=== PATIENT | female | born 1970 | race Caucasian/White ===

== ENCOUNTER 2021-03-20 09:54 | Day surgery (SDC) | payer BC ==
[2021-03-20] MEDS ORDERED: LIDOCAINE HCL 2% 100 MG/5 ML IJ ONE (09:55)
[2021-03-20] MEDS ORDERED: DIPRIVAN 200 MG/20 ML IV ONE (10:53)
[2021-03-20] MEDS ORDERED: Ketamine HCl 50 MG/ML ONE (11:38)
[2021-03-20] MEDS ORDERED: Lactated Ringers 1,000 ML IV ONE (15:54)
--- NOTE | 2021-03-21 11:53 | XRAY ---
19 seconds of fluoroscopy was used in surgery for a bilateral L4-S1 MBB.
--- NOTE | 2021-03-23 23:56 | XRAY ---
Indication: Bilateral L4-S1 MBB. Intraoperative fluoroscopy was provided for 19 seconds. A single digital spot image submitted for interpretation demonstrates posterior spinal needle tips projected over the expected course of the left and right L4-S1 nerve roots. Correlate with intraoperative findings/report.
== END 2021-03-20 11:57 | disposition home or self-care (01) ==
LOC: SDC-PAIN 09:54
PROVIDERS: ATTEND Psychiatry & Neurology Pain Medicine
DX: M47.816 Spondylosis without myelopathy or radiculopathy, lumbar region (principal); E11.9 Type 2 diabetes mellitus without complications; Z79.899 Other long term (current) drug therapy
CPT/HCPCS: 64493; 64494; 72020; 77002; 82947; 84703; J2704

== ENCOUNTER 2021-05-08 08:46 | Day surgery (SDC) | payer BC ==
[2021-05-08] MEDS ORDERED: BUPIVACAINE 0.5% VIAL IJ ONE (08:47)
[2021-05-08] MEDS ORDERED: DIPRIVAN 200 MG/20 ML IV ONE (09:19)
[2021-05-08] MEDS ORDERED: Zofran 4 MG/2 ML VIAL ONE ×2 (09:27)
[2021-05-08] MEDS ORDERED: BENADRYL 50 MG/ML ONE (09:27)
[2021-05-08] MEDS ORDERED: Lactated Ringers 1,000 ML IV ONE (16:11)
--- NOTE | 2021-05-09 11:19 | XRAY ---
19 seconds fluoroscopy time in surgery for bilateral L4-S1 MBB.
--- NOTE | 2021-05-11 22:31 | XRAY ---
Indication: Bilateral L4-S1 MBB. Intraoperative fluoroscopy was provided for 19 seconds. A single digital spot image submitted for interpretation demonstrates posterior needle tips projected over the expected left and right L4-S1 nerve roots. Correlate with intraoperative findings/report.
== END 2021-05-08 10:00 | disposition home or self-care (01) ==
LOC: SDC-PAIN 08:46
PROVIDERS: ATTEND Psychiatry & Neurology Pain Medicine
DX: M47.816 Spondylosis without myelopathy or radiculopathy, lumbar region (principal); E11.9 Type 2 diabetes mellitus without complications; Z79.899 Other long term (current) drug therapy
CPT/HCPCS: 64493; 64494; 72020; 77002; 82947; 84703; J1200; J2405; J2704

== ENCOUNTER 2021-06-12 06:55 | Day surgery (SDC) | payer BC ==
[2021-06-12] MEDS ORDERED: Xylocaine 1% Vial 30 ML PF IJ ONE (06:56)
[2021-06-12] MEDS ORDERED: Depo-Medrol 40 MG/ML IM ONE (06:56)
[2021-06-12] MEDS ORDERED: BUPIVACAINE 0.5% VIAL IJ ONE (06:56)
[2021-06-12] MEDS ORDERED: BENADRYL 50 MG/ML ONE (07:51)
[2021-06-12] MEDS ORDERED: Zofran 4 MG/2 ML VIAL ONE (07:51)
[2021-06-12] MEDS ORDERED: DIPRIVAN 200 MG/20 ML IV ONE (08:26)
--- NOTE | 2021-06-12 10:23 | XRAY ---
43 seconds fluoroscopy time in surgery for left L4-S1 RFA.
--- NOTE | 2021-06-12 10:29 | XRAY ---
Indication: Left L4-S1 RFA. Intraoperative fluoroscopy provided for 43 seconds. 3 digital spot image submitted for interpretation demonstrates posterior needle tips projecting over the expected left L4-S1 nerve roots. Correlate with intraoperative findings/report.
[2021-06-12] MEDS ORDERED: Lactated Ringers 1,000 ML IV ONE (17:22)
== END 2021-06-12 08:58 | disposition home or self-care (01) ==
LOC: SDC-PAIN 06:55
PROVIDERS: ATTEND Psychiatry & Neurology Pain Medicine
DX: M47.816 Spondylosis without myelopathy or radiculopathy, lumbar region (principal); I51.9 Heart disease, unspecified; G43.909 Migraine, unspecified, not intractable, without status migrainosus; M19.90 Unspecified osteoarthritis, unspecified site; I25.10 Atherosclerotic heart disease of native coronary artery without angina pectoris; I10 Essential (primary) hypertension; J44.9 Chronic obstructive pulmonary disease, unspecified; E11.9 Type 2 diabetes mellitus without complications; D64.9 Anemia, unspecified; I48.91 Unspecified atrial fibrillation; Z79.01 Long term (current) use of anticoagulants; Z79.899 Other long term (current) drug therapy
CPT/HCPCS: 64635; 64636; 72100; 77002; 82947; 84703; J1030; J1200; J2001; J2405; J2704

== ENCOUNTER 2021-06-19 06:54 | Day surgery (SDC) | payer BC ==
[2021-06-19] MEDS ORDERED: Xylocaine 1% Vial 30 ML PF IJ ONE (06:55)
[2021-06-19] MEDS ORDERED: Depo-Medrol 40 MG/ML IM ONE (06:55)
[2021-06-19] MEDS ORDERED: BUPIVACAINE 0.5% VIAL IJ ONE (06:55)
[2021-06-19] MEDS ORDERED: Zofran 4 MG/2 ML VIAL ONE (07:41)
[2021-06-19] MEDS ORDERED: BENADRYL 50 MG/ML ONE (07:41)
[2021-06-19] MEDS ORDERED: DIPRIVAN 200 MG/20 ML IV ONE (07:59)
--- NOTE | 2021-06-19 10:21 | XRAY ---
Indication: Right L4-S1 RFA. Intraoperative fluoroscopy provided for 43 seconds. 3 digital spot images submitted for interpretation demonstrates posterior needle tips projecting over the expected right L4-S1 nerve roots. Correlate with intraoperative findings/report.
--- NOTE | 2021-06-19 10:44 | XRAY ---
43 seconds fluoroscopy time in surgery for right L4-S1 RFA.
[2021-06-19] MEDS ORDERED: Lactated Ringers 1,000 ML IV ONE (12:24)
== END 2021-06-19 08:34 | disposition home or self-care (01) ==
LOC: SDC-PAIN 06:54
PROVIDERS: ATTEND Psychiatry & Neurology Pain Medicine
DX: M47.816 Spondylosis without myelopathy or radiculopathy, lumbar region (principal); E11.9 Type 2 diabetes mellitus without complications; Z79.899 Other long term (current) drug therapy
CPT/HCPCS: 64635; 64636; 72100; 77002; 82947; 84703; J1030; J1200; J2001; J2405; J2704